=== PATIENT | male | born 1985 | race African-American/Black ===

== ENCOUNTER 2021-06-20 07:39 | Emergency (ER) | payer SELFPAY ==
[~2021-06-20] VITALS: Ht 190.5 cm; Wt 100.0 kg
[2021-06-20] MEDS ORDERED: ACETAMINOPHEN 325MG TABLET PO ONE (08:15)
[2021-06-20] MEDS ORDERED: ALBU6.7H9 INH (09:33)
[2021-06-20] MEDS ORDERED: IBUP-2029 MT (09:33)
[2021-06-20 10:01] VITALS: BP 138/72
== END 2021-06-20 10:02 | disposition home or self-care (01) ==
LOC: ER 07:39
DX: B34.9 Viral infection, unspecified (principal); Z09 Encounter for follow-up examination after completed treatment for conditions other than malignant neoplasm; Z86.16 Personal history of COVID-19
CPT/HCPCS: 71045; 87426; 99284